=== PATIENT | male | born 1960 | race Caucasian/White ===

== ENCOUNTER 2017-08-07 14:49 | Emergency (ER) | payer MEDICARE ==
[2017-08-07] MEDS ORDERED: Ketorolac Tromethamine 60 MG/2 ML VIAL ONE (15:52)
[2017-08-07] MEDS ORDERED: Ondansetron ODT 4 MG TAB ONE (15:52)
--- NOTE | 2017-08-07 16:25 | RAD ---
THORACIC SPINE 3 VIEWS: Date: 08/07/17 HISTORY: Back pain after falling. FINDINGS: Thoracic vertebra maintain normal height. No evidence of compression deformity. No evidence of lytic or blastic process. IMPRESSION: Unremarkable thoracic spine. POS: [facility]
== END 2017-08-07 16:47 | disposition home or self-care (01) ==
LOC: ERS 14:49
DX: M54.6 Pain in thoracic spine (principal); M54.5 Low back pain; I10 Essential (primary) hypertension; Z79.82 Long term (current) use of aspirin; Z79.899 Other long term (current) drug therapy; W01.0XXA Fall on same level from slipping, tripping and stumbling without subsequent striking against object, initial encounter
CPT/HCPCS: 72072; 96372; J1885; Q0162

== ENCOUNTER 2017-09-11 20:30 | Outpatient (CLI) | payer MEDICARE | END 2017-09-11 20:31 | disposition home or self-care (01) | LOC: SLEEPLAB 20:30 | PROVIDERS: ATTEND Internal Medicine Critical Care Medicine | DX: G47.33 Obstructive sleep apnea (adult) (pediatric) (principal); R06.81 Apnea, not elsewhere classified; R53.83 Other fatigue; R09.89 Other specified symptoms and signs involving the circulatory and respiratory systems; R06.83 Snoring; G47.00 Insomnia, unspecified; I10 Essential (primary) hypertension | CPT/HCPCS: 95810 ==

== ENCOUNTER 2017-11-04 17:23 | Outpatient (CLI) | payer MEDICARE | END 2017-11-04 17:24 | disposition home or self-care (01) | LOC: BICRAD 17:23 | PROVIDERS: ATTEND Internal Medicine Medical Oncology | DX: D72.828 Other elevated white blood cell count (principal) | CPT/HCPCS: 71046 ==

== ENCOUNTER 2018-01-16 13:30 | Outpatient (CLI) | payer MEDICARE | END 2018-01-16 13:31 | disposition home or self-care (01) | LOC: BICULT 13:30 | PROVIDERS: ATTEND Family Medicine | DX: E04.1 Nontoxic single thyroid nodule (principal) | CPT/HCPCS: 76536 ==

== ENCOUNTER 2018-10-09 16:51 | Outpatient (CLI) | payer MEDICARE ==
--- NOTE | 2018-10-09 18:37 | RAD ---
RADIOGRAPH CHEST 2 VIEWS: HISTORY: 58-year-old male with C92.10 chronic myeloid leukemia, not having achieved remission. FINDINGS: There is no air space density, pulmonary edema, pleural effusion, pneumothorax. Cardiomediastinal an d hilar shadows are normal. IMPRESSION: No active disease. jnr POS: [facility]
== END 2018-10-09 16:52 | disposition home or self-care (01) ==
LOC: RAD 16:51
PROVIDERS: ATTEND Internal Medicine Medical Oncology
DX: C92.10 Chronic myeloid leukemia, BCR/ABL-positive, not having achieved remission (principal)
CPT/HCPCS: 36415; 71046; 80053; 82248; 83615; 84100; 84550

== ENCOUNTER 2018-12-16 17:12 | Inpatient (IN) | payer MEDICARE ==
[2018-12-16 18:18] LABS: #Lymphocytes 1.7 thou/uL (1.20-3.40); #Monocytes 0.9 thou/uL (0.11-0.59); #Neutrophils 3.3 thou/uL (1.40-6.50); %Basophils 0.7 % (0.0-1.0); %Eosinophils 14.1 % (0.0-10.0); %Lymphocytes 25.1 % (21.0-51.0); %Monocytes 12.3 % (0.0-10.0); %Neutrophils 47.8 % (42.0-75.0); Hemoglobin 10.5 g/dL (14.0-18.0); Mean Corpuscular HGB CONC 34.1 g/dL (32.0-36.0); Mean Corpuscular Hemoglobin 32.8 pg (27.0-31.0); Mean Corpuscular Volume 96.2 fL (78.0-98.0); Mean Platelet Volume 7.2 fL (7.4-10.4); Platelet Count 247 thou/uL (130-400); RBC Distribution Width 14.3 % (11.5-14.5); Red Blood Cell (RBC) Count 3.21 mill/uL (4.70-6.10)
--- NOTE | 2018-12-16 18:38 | RAD ---
PORTABLE CHEST ONE VIEW: 12/16/18 at 5:21 p.m. HISTORY: Shortness of breath. Chest pain. FINDINGS: Comparison made with exam of 10/09/18. The heart size is normal. The lungs are expanded without focal areas of consolidation, pneumothoraces , or pleural effusions. IMPRESSION: No acute process. POS: [facility]
[2018-12-16 18:40] LABS: ALT (SGPT) 50 U/L (8-55); AST (SGOT) 58 U/L (5-34); Albumin 4.4 g/dL (3.5-5.0); Alkaline Phosphatase 49 U/L (40-150); Anion Gap 14 mmol/L (10-20); BUN (Urea Nitrogen) 9 mg/dL (8.4-25.7); Bilirubin, Total 0.8 mg/dL (0.2-1.2); CK (CPK) 1605 U/L (30-200); Calc. Creatinine Clearance 0 mL/min (70-130); Calcium 9.9 mg/dL (7.8-10.44); Carbon Dioxide 26 mmol/L (22-29); Chloride 106 mmol/L (98-107); Estimated GFR-MDRD 65; Globulin 2.5 g/dL (2.4-3.5); Glucose 116 mg/dL (70-105); Potassium 3.9 mmol/L (3.5-5.1); Protein, Total 6.9 g/dL (6.0-8.3); Sodium 142 mmol/L (136-145)
[2018-12-16] MEDS ORDERED: Aspirin Chewable 81 MG TAB ONE (18:59)
[2018-12-16] MEDS ORDERED: methylPREDNISolone Sod Succ/PF 125 MG/2 ML VIAL ONE (18:59)
[2018-12-16] MEDS ORDERED: diphenhydrAMINE 50 MG/ML VIAL ONE (18:59)
[2018-12-16 21:35] LABS: Troponin I 0.013 ng/mL (< 0.028)
[2018-12-16] MEDS ORDERED: Ondansetron PF 4 MG/2 ML Vial IVP PRN (22:45)
[2018-12-16] MEDS ORDERED: Acetaminophen 325 MG TAB PO PRN (22:45)
[2018-12-16] MEDS ORDERED: HYDROcodone/Acetaminophen 5/325 mg Tablet PO PRN ×2 (22:45)
[2018-12-16] MEDS ORDERED: Ondansetron ODT 4 MG TAB SL PRN (22:45)
[2018-12-17 00:58] LABS: Troponin I 0.018 ng/mL (< 0.028)
[2018-12-17 01:05] VITALS: BMI 39.8
[2018-12-17] MEDS: Sodium Chloride 0.9% 1,000 ML IV SCH ×2 (02:46→03:23)
[2018-12-17] MEDS ORDERED: Ondansetron PF 4 MG/2 ML Vial IVP PRN (13:26)
[2018-12-17] MEDS ORDERED: Ondansetron ODT 4 MG TAB PO PRN (13:26)
[2018-12-17] MEDS ORDERED: diphenhydrAMINE 25 MG CAP PO PRN (13:26)
[2018-12-17] MEDS ORDERED: HYDROcodone/Acetaminophen 5/325 mg Tablet PO PRN (13:26)
[2018-12-17] MEDS ORDERED: Acetaminophen 325 MG TAB PO PRN (13:26)
[2018-12-17] MEDS ORDERED: Gabapentin 300 MG CAP PO SCH (15:00)
[2018-12-17] MEDS ORDERED: tiZANidine HCl 4 MG TAB PO SCH (15:00)
[2018-12-17] MEDS ORDERED: METHadone HCl 10 MG TAB PO SCH (17:00)
[2018-12-17] MEDS ORDERED: Bacteriostatic Water 30 ML VIAL FS PRN (17:27)
[2018-12-17] MEDS ORDERED: methylPREDNISolone Sod Succ 40 MG VIAL IVP SCH (17:30)
[2018-12-17 18:16] VITALS: BP 125/64; TEMP 97.5
[2018-12-17] MEDS ORDERED: TEMAZEPAM PO SCH (21:00)
[2018-12-17] MEDS ORDERED: Famotidine 20 MG TAB PO SCH (21:00)
[2018-12-17] MEDS ORDERED: Atorvastatin Calcium 40 MG TAB PO SCH (21:00)
[2018-12-17] MEDS ORDERED: Temazepam 15 MG CAP PO SCH (21:00)
--- NOTE | 2018-12-17 21:27 | HP ---
PRIMARY CARE PHYSICIAN: Dr. Humberto Harris. CHIEF COMPLAINT: Chest pain. HISTORY OF PRESENT ILLNESS: Mr. Mesa is a pleasant 58-year-old gentleman, who has a history of hypertension, CML, and diabetes mellitus. He was in his usual state of health until last night. He says that his suddenly became ill and looked like she was about to fall. He says that she basically was falling into his arms and he was trying to hold her up when he started noticing a severe pain in his lower back. He says he knows he has some chronic low back pain. About an hour or so later, he started getting severe muscle cramps in his lower back and then says that it seemed to work its way up and he started getting tightness into his chest and was feeling short of breath. He says that the pain in his chest was kind of sharp and would come and go, and he also noted feeling a little bit hot. As a result of these symptoms, he came to the ER for evaluation. He says he did have a little bit of nausea, but no vomiting and says now that the pains are completely gone. He also noted a rash on his hands and that actually extended into his arms and "all over his body." He says he and his wrecked their brains, trying to figure out what the rash could be due to, but he says he has had no new medications or no new detergents, nothing [id number] new. He says he is basically homebound and does not really go out to the yard to do any type of work. He says that the rash is little bit itchy all over. He says he was given some steroids in the ER, which started to help his symptoms. Otherwise, when I see him today, he is pretty much back to his baseline. He is completely chest pain free and actually his is in the hospital now and he is actually anxious to be able to go and see her. He also says that he has seen Dr. Jiménez in the past. He has done several cardiac catheterizations. His last one he says was about 2 years ago and says that at that time, he did not find any coronary artery disease. He also says he had a stress test around about that time as well. It was also noted in an EKG report that he did have a right bundle-branch block back in April 2017. REVIEW OF SYSTEMS: All systems were reviewed and are negative except for that mentioned in the history of present illness. PAST MEDICAL HISTORY: Significant for; 1. CML and he is treated at [facility] for that. 2. Hypertension. 3. Chronic kidney disease stage 3. 4. Hypercholesterolemia. 5. BPH. 6. Osteoarthritis. 7. Diabetes mellitus type 2. 8. Chronic low back pain. 9. 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 PAST SURGICAL HISTORY: He has had a cardiac catheterization, right shoulder, and rotator cuff repair. ALLERGIES: PENICILLIN, WHICH CAUSED HIM TO STOP BREATHING WELL BACTRIM. SOCIAL HISTORY: He is , has 2 children. He is a nonsmoker. He denies any alcohol use, but says that he was exposed to secondhand smoke by his . He is a full code. FAMILY HISTORY: Significant for heart disease in his mother as well as diabetes mellitus. CURRENT MEDICATIONS: Include; 1. Maxzide once a day. 2. Tizanidine 4 mg t.i.d. 3. Temazepam 30 mg at bedtime. 4. Multivitamin once a day. 5. Methadone 10 mg q.i.d. 6. Metformin 1000 mg daily. 7. Lisinopril 10 mg daily. 8. Gabapentin 300 mg t.i.d. 9. Flonase nasal spray in each nares daily. 10. Sprycel 50 mg daily. 11. Zyrtec 10 mg daily. 12. Atorvastatin 40 mg at bedtime. 13. Aspirin 81 mg daily. 14. Vitamin C 1000 mg daily. PHYSICAL EXAMINATION: GENERAL: He is alert and oriented. He appears to be in no acute distress. He is well developed and well nourished. VITAL SIGNS: Blood pressure is 140/69, heart rate 70, respiratory rate of 16, temperature is 97.6, and O2 saturation is 96% on room air. HEENT: Pupils are equal, round, and reactive. Extraocular muscles are intact. His sclerae are anicteric. Throat; there is no erythema, no exudates. NECK: No adenopathy. No bruits. LUNGS: Clear to auscultation bilaterally. There is no wheezing, no rales, no rhonchi. CARDIOVASCULAR: He has a normal S1 and S2. There is no S3 or S4. No murmurs, clicks, or rubs. ABDOMEN: Obese. It is soft. It is nontender, nondistended. Positive for bowel sounds. No rebound or guarding. EXTREMITIES: He has mild nonpitting edema. There is no calf tenderness or redness. NEUROLOGIC: Cranial nerves 2 through 12 are intact. His muscle strength is 5/5 in both his upper and lower extremities. SKIN AND INTEGUMENT: There are no significant skin changes. No rash. LABORATORY AND DIAGNOSTIC DATA: White blood cell count 7, hemoglobin 10.5, hematocrit is 30.9, and platelet count is 247. Sodium 142, potassium 3.9, chloride is 106, CO2 is 26, BUN of 9, creatinine 1.15, glucose is 116, creatine kinase is 1605. Troponin is less than 0.013. EKG, he had a right bundle-branch block. He had a chest x-ray, which was essentially negative. ASSESSMENT: 1. This is a 58-year-old gentleman, who presents with chest pain after he had to try to lift his up, I suspect that this likely represents a musculoskeletal strain. He reports a cardiac catheterization about 2 years ago, which was normal and/or no blockage had been reported, and once again, the description of the pain does not appear to be cardiac and it has since resolved. His troponins are negative. Therefore, I do not suspect that any urgent workup is needed at this time and he can likely follow up with Dr. Jiménez as an outpatient. 2. Dermatitis. This likely represents some type of allergic or contact dermatitis. We will give him another dose of IV steroids as well as some Benadryl p.r.n. and hopefully, this should improve over the course of the next couple of days. 3. Diabetes mellitus. We will go ahead and restart his medications as well as a sliding scale insulin. 4. Hypertension. Again, restart home medications as well as p.r.n. medications for his blood pressure. 5. Chronic myelogenous leukemia, as noted that his white blood cell count is normal. He is currently on Sprycel for this. This will be continued. 6. Hopefully, the patient can be discharged home later on this afternoon. Job ID: [id number]
[2018-12-18] MEDS ORDERED: Multivit, Therapeutic 1 TAB PO SCH (09:00)
[2018-12-18] MEDS ORDERED: Loratadine 10 MG TAB PO SCH (09:00)
[2018-12-18] MEDS ORDERED: Triamterene/Hydrochlorothiazide 37.5 mg/25 mg Tablet PO SCH (09:00)
[2018-12-18] MEDS ORDERED: methylPREDNISolone Sod Succ 40 MG VIAL IVP SCH ×2 (09:00)
[2018-12-18] MEDS ORDERED: Non-Formulary Item 1 EACH (Triamterene/Hydrochlorothiazid [Triamterene-Hctz 37.5-25 Mg Cp PO SCH (09:00)
[2018-12-18] MEDS ORDERED: Ascorbic Acid 500 mg Chewable Tablet PO SCH (09:00)
[2018-12-18] MEDS ORDERED: DASATINIB 50 MG PO SCH ×2 (09:00)
[2018-12-18] MEDS ORDERED: Fluticasone Propionate Nasal Spray 16 gm Bottle NASAL SCH ×2 (09:00)
[2018-12-18] MEDS ORDERED: Aspirin 81 mg Enteric Coated Tablet PO SCH (09:00)
[2018-12-18] MEDS ORDERED: metFORMIN 500 MG TAB PO SCH (09:00)
[2018-12-18] MEDS ORDERED: Lisinopril 10 MG TAB PO SCH (09:00)
== END 2018-12-17 19:45 | disposition home or self-care (01) | DRG 313 ==
LOC: ERS 17:12 → 2NO 21:53
PROVIDERS: ADMIT Internal Medicine; ATTEND Internal Medicine
DX: R07.9 Chest pain, unspecified (principal); C92.10 Chronic myeloid leukemia, BCR/ABL-positive, not having achieved remission; L30.9 Dermatitis, unspecified; E11.22 Type 2 diabetes mellitus with diabetic chronic kidney disease; I12.9 Hypertensive chronic kidney disease with stage 1 through stage 4 chronic kidney disease, or unspecified chronic kidney disease; N18.3 Chronic kidney disease, stage 3 (moderate); E78.00 Pure hypercholesterolemia, unspecified; N40.0 Benign prostatic hyperplasia without lower urinary tract symptoms; M19.90 Unspecified osteoarthritis, unspecified site
CPT/HCPCS: 36415; 71045; 80053; 82550; 83880; 84484; 85025; 93005; 96361; 96374; 96375; J1200; J2920; J2930

== ENCOUNTER 2019-08-11 16:19 | Emergency (ER) | payer MEDICARE ==
[2019-08-11 17:05] LABS: #Eosinphils 0.4 thou/uL (0.0-0.7); #Lymphocytes 1.2 thou/uL (1.20-3.40); #Monocytes 0.6 thou/uL (0.11-0.59); #Neutrophils 5.9 thou/uL (1.40-6.50); %Basophils 0.6 % (0.0-1.0); %Eosinophils 5.2 % (0.0-10.0); %Lymphocytes 14.2 % (21.0-51.0); %Monocytes 7.1 % (0.0-10.0); %Neutrophils 72.9 % (42.0-75.0); Hemoglobin 13.2 g/dL (14.0-18.0); Mean Corpuscular HGB CONC 34.9 g/dL (32.0-36.0); Mean Corpuscular Hemoglobin 31.7 pg (27.0-31.0); Mean Platelet Volume 8.5 fL (7.4-10.4); Platelet Count 203 thou/uL (130-400); RBC Distribution Width 13.2 % (11.5-14.5); Red Blood Cell (RBC) Count 4.15 mill/uL (4.70-6.10); White Blood Cell (WBC) Count 8.1 thou/uL (4.8-10.8)
[2019-08-11 17:12] LABS: PTT 24.1 SEC (22.9-36.1)
[2019-08-11 17:30] LABS: ALT (SGPT) 51 U/L (8-55); AST (SGOT) 51 U/L (5-34); Albumin 4.9 g/dL (3.5-5.0); Alkaline Phosphatase 100 U/L (40-110); Anion Gap 14 mmol/L (10-20); BUN (Urea Nitrogen) 14 mg/dL (8.4-25.7); Bilirubin, Total 0.9 mg/dL (0.2-1.2); Calc. Creatinine Clearance 0 mL/min (70-130); Calcium 9.7 mg/dL (7.8-10.44); Carbon Dioxide 29 mmol/L (22-29); Chloride 91 mmol/L (98-107); Estimated GFR-MDRD 52; Globulin 2.7 g/dL (2.4-3.5); Glucose 307 mg/dL (70-105); Lipase 78 U/L (8-78); Potassium 3.9 mmol/L (3.5-5.1); Protein, Total 7.6 g/dL (6.0-8.3); Sodium 130 mmol/L (136-145)
--- NOTE | 2019-08-11 18:12 | CT ---
CT PULMONARY ANGIOGRAM WITH IV CONTRAST AND 3-D POSTPROCESSING: HISTORY:Dyspnea, cough, hemoptysis FINDINGS: There is good contrast opacification of the pulmonary arterial vasculature without filling defects to suggest pulmonary embolism. The thoracic aorta is well opacified without aneurysm or dissection. No pleural or pericardial effusions are seen. No pneumothoraces, focal areas of consolidation or lung nodules are noted. There are degenerative changes in the spine. Upper abdominal tomograms demonstrate fatty infiltration of the liver. IMPRESSION: No CT evidence of pulmonary embolism.
== END 2019-08-11 18:34 | disposition home or self-care (01) ==
LOC: ERS 16:19
DX: J20.9 Acute bronchitis, unspecified (principal); E11.9 Type 2 diabetes mellitus without complications; I10 Essential (primary) hypertension; Z79.899 Other long term (current) drug therapy; Z79.84 Long term (current) use of oral hypoglycemic drugs
CPT/HCPCS: 71275; 80053; 83690; 83880; 84484; 85025; 85610; 85730

== ENCOUNTER 2019-08-18 18:59 | Emergency (ER) | payer MEDICARE, OTHER ==
[2019-08-18 19:27] LABS: #Eosinphils 0.1 thou/uL (0.0-0.7); #Lymphocytes 3.2 thou/uL (1.20-3.40); #Monocytes 0.6 thou/uL (0.11-0.59); #Neutrophils 4.3 thou/uL (1.40-6.50); %Basophils 0.4 % (0.0-1.0); %Eosinophils 0.9 % (0.0-10.0); %Lymphocytes 39.2 % (21.0-51.0); %Monocytes 7.4 % (0.0-10.0); %Neutrophils 52.1 % (42.0-75.0); Hemoglobin 13.8 g/dL (14.0-18.0); Mean Corpuscular HGB CONC 34.7 g/dL (32.0-36.0); Mean Corpuscular Hemoglobin 31.9 pg (27.0-31.0); Mean Corpuscular Volume 92.1 fL (78.0-98.0); Mean Platelet Volume 7.6 fL (7.4-10.4); Platelet Count 304 thou/uL (130-400); RBC Distribution Width 13.3 % (11.5-14.5); Red Blood Cell (RBC) Count 4.33 mill/uL (4.70-6.10); White Blood Cell (WBC) Count 8.3 thou/uL (4.8-10.8)
[2019-08-18 19:47] LABS: ALT (SGPT) 54 U/L (8-55); AST (SGOT) 61 U/L (5-34); Albumin 4.7 g/dL (3.5-5.0); Alkaline Phosphatase 95 U/L (40-110); Anion Gap 15 mmol/L (10-20); BUN (Urea Nitrogen) 17 mg/dL (8.4-25.7); Bilirubin, Total 0.5 mg/dL (0.2-1.2); Calc. Creatinine Clearance 0 mL/min (70-130); Carbon Dioxide 26 mmol/L (22-29); Chloride 95 mmol/L (98-107); Estimated GFR-MDRD 49; Globulin 3.4 g/dL (2.4-3.5); Glucose 347 mg/dL (70-105); Potassium 3.6 mmol/L (3.5-5.1); Protein, Total 8.1 g/dL (6.0-8.3); Sodium 132 mmol/L (136-145)
--- NOTE | 2019-08-18 19:57 | RAD ---
2 view chest: [08/18/2019] Comparison:10/09/2018 HISTORY: Cough, hyperglycemia FINDINGS: Heart and mediastinal contours are grossly unremarkable. No pneumothorax or pleural fluid. No focal consolidation or alveolar edema. IMPRESSION: No acute findings.
[2019-08-18 20:41] LABS: Bacteria/HPF None Seen HPF (None Seen); Bilirubin Negative (Negative); Blood, Urine 1+ (Negative); Clarity Clear (Clear); Glucose, Urine (Dipstick) Greater than 1000 mg/dL (Negative); Leukocyte Negative Leu/uL (Negative); Nitrite Negative (Negative); Protein, Urine (Dipstick) 20 mg/dL (Neg-Trace); Squamous Epithelial None Seen HPF (0-3); Urobilinogen Normal mg/dL (Less than 2); WBC/HPF None Seen HPF (0-3)
[2019-08-18 20:52] LABS: Sperm/HPF Rare HPF (None Seen)
[2019-08-18 21:37] LABS: Base Excess-Venous -0.7 mmol/L (-2.0 to 3.0); Bicarbonate (HCO3v) 25.8 mmol/L (22.0-28.0); CO2 Tension (PvCO2) 48.2 mmHg (40.0-50.0); Calcium, Ionized 1.15 mmol/L (See Comments:); Chloride 93 mmol/L (98-107); Hemoglobin - Calc 15.4 g/dL (14.0-18.0); Potassium 3.5 mmol/L (3.5-5.1); Sodium 131 mmol/L (138-145); T. Carbon Dioxide 27.3 mmol/L (22.0-28.0); vO2 Saturation-calc 33.5 % (60.0-85.0)
== END 2019-08-18 22:39 | disposition home or self-care (01) ==
LOC: ERS 18:59
DX: E11.65 Type 2 diabetes mellitus with hyperglycemia (principal); J11.1 Influenza due to unidentified influenza virus with other respiratory manifestations; I10 Essential (primary) hypertension; Z79.899 Other long term (current) drug therapy; Z79.82 Long term (current) use of aspirin; Z79.84 Long term (current) use of oral hypoglycemic drugs
CPT/HCPCS: 36415; 36416; 71046; 80053; 81003; 81015; 82010; 82330; 82803; 85025

== ENCOUNTER 2019-08-26 22:38 | Emergency (ER) | payer MEDICARE ==
--- NOTE | 2019-08-27 00:08 | ULT ---
RIGHT LOWER EXTREMITY VENOUS DUPLEX EXAM: 08/26/19 INDICATIONS: Right lower extremity pain and edema. Veins of the right lower extremity evaluated with ultrasound and Doppler with color Doppler and spect ral analysis. Veins show normal blood flow and compression. No evidence of DVT. IMPRESSION: No evidence of right lower extremity DVT. POS: [facility]
== END 2019-08-27 01:00 | disposition home or self-care (01) ==
LOC: ERS 22:38
DX: G62.9 Polyneuropathy, unspecified (principal); I10 Essential (primary) hypertension; E11.9 Type 2 diabetes mellitus without complications; Z79.82 Long term (current) use of aspirin; Z79.899 Other long term (current) drug therapy; Z79.84 Long term (current) use of oral hypoglycemic drugs
CPT/HCPCS: 94760

== ENCOUNTER 2022-02-13 15:46 | Outpatient (CLI) | payer MEDICARE | END 2022-02-13 15:47 | disposition home or self-care (01) | LOC: BICULT 15:46 | PROVIDERS: ATTEND Internal Medicine Nephrology | DX: N18.30 Chronic kidney disease, stage 3 unspecified (principal); Z12.5 Encounter for screening for malignant neoplasm of prostate; E11.22 Type 2 diabetes mellitus with diabetic chronic kidney disease; N18.2 Chronic kidney disease, stage 2 (mild); E11.21 Type 2 diabetes mellitus with diabetic nephropathy; N40.1 Benign prostatic hyperplasia with lower urinary tract symptoms; R35.0 Frequency of micturition; R81 Glycosuria | CPT/HCPCS: 76770; 80048; 81001; 83036; 87086; G0103; 36415; 87077; 87186 ==

== ENCOUNTER 2022-02-21 15:08 | Outpatient (CLI) | payer MEDICARE | END 2022-02-21 15:09 | disposition home or self-care (01) | LOC: BICCT 15:08 | PROVIDERS: ATTEND Urology | DX: N40.1 Benign prostatic hyperplasia with lower urinary tract symptoms (principal); R35.0 Frequency of micturition; N18.2 Chronic kidney disease, stage 2 (mild); S39.93 Unspecified injury of pelvis; I70.0 Atherosclerosis of aorta; I70.8 Atherosclerosis of other arteries | CPT/HCPCS: 74176; 80053; 82248; 83615; 84100; 84550 ==